=== PATIENT | male | born 1970 | race Caucasian/White ===

== ENCOUNTER 2017-08-18 02:50 | Emergency (ER) | payer OTHER ==
[~2017-08-18] VITALS: Ht 180.3 cm; Wt 105.9 kg
[2017-08-18 03:48] LABS: BASO # 0.1 10^3/uL (0.0-0.2); BASO % 0.6 % (0.0-1.0); EOS # 0.5 10^3/uL (0.0-0.50); EOS % 3.7 % (0.0-3.0); IMMATURE GRANULOCYTE % 0.2 % (0-0); LYMPH # 4.2 10^3/uL (1.5-4.5); MEAN CORPUSCULAR HEMOGLOBIN 31.9 pg (27.0-33.0); MEAN CORPUSCULAR HGB CONC 34.4 g/dl (32.0-36.5); MEAN CORPUSCULAR VOLUME 92.7 fl (80.0-96.0); MONO # 1.2 10^3/uL (0.0-0.8); MONO % 10.2 % (0.0-5.0); NEUTROPHILS % 50.3 % (36.0-66.0); PLATELET COUNT, AUTOMATED 279 10^3/uL (150-450); RED CELL DISTRIBUTION WIDTH 12.2 % (11.5-14.5)
[2017-08-18 04:09] LABS: ANION GAP 11 MEQ/L (8-16); BLOOD UREA NITROGEN 11 MG/DL (7-18); CALCIUM LEVEL 8.8 MG/DL (8.5-10.1); CARBON DIOXIDE LEVEL 25 MEQ/L (21-32); CHLORIDE LEVEL 108 MEQ/L (98-107); CREATININE FOR GFR 0.94 MG/DL (0.70-1.30); GLOMERULAR FILTRATION RATE > 60.0 (>60); GLUCOSE, FASTING 98 MG/DL (70-105); POTASSIUM SERUM 3.9 MEQ/L (3.5-5.1); SODIUM LEVEL 144 MEQ/L (136-145)
--- NOTE | 2017-08-18 04:10 | REPUSA ---
CLINICAL HISTORY: Syncope. TECHNIQUE: Multiple axial brain CT scan sections were obtained from base to vertex without contrast a dministration. COMMENTS: The study shows normal configuration of sella turcica. There are no intra or extra-axial collections. There is no mass effect or midline shift. There is no evidence of hematoma formation. No hydrocephal us is present. No abnormal calcifications are noted. No significant abnormalities are seen either in the posterior fossa or supratentorial compartment. The sinuses and mastoid air cells are patent. IMPRESSION: No evidence of acute intracranial pathology. Thank you for your kind referral of this patient.
[2017-08-18] MEDS ORDERED: NS 500 ML IV ONE (04:45)
[2017-08-18 05:27] VITALS: BP 126/61
--- NOTE | 2017-08-20 07:48 | ECGEPIP ---
Stationary ECG Study [facility] - ED Test Date: 2017-08-18 Pat Name: ZAIRA BULLARD Department: Room: - Gender: M Senior Mechanical Engineer: : 1970 Requested By: COREY CHAPMAN Order Number: [id number] Reading MD: Tram Madrid Measurements Intervals [place] Rate: 75 P: 14 MA: 134 QRS: 5 QRSD: 93 T: 29 QT: 390 QTc: 437 Interpretive Statements SINUS RHYTHM NONSPECIFIC T-WAVE ABNORMALITY NO PRIOR FOR COMPARISON Electronically Signed On 08-20-2017 7:48:17 EDT by Tram Madrid
== END 2017-08-18 05:40 | disposition home or self-care (01) ==
LOC: M ED 02:50 → EDBD 02:50 → M ED 05:40
DX: R55 Syncope and collapse (principal); Z87.891 Personal history of nicotine dependence
CPT/HCPCS: 70450; 80048; 85025; 93005; 96360; 99284; G0480

== ENCOUNTER 2017-10-12 12:15 | Day surgery (SDC) | payer OTHER ==
[~2017-10-12] VITALS: Ht 180.3 cm; Wt 106.1 kg
[~2017-10-12 12:15] MED LIST: OMEP20CA3 PO; SIMV20TA2 PO; VIAG100T PO
[2017-10-12] MEDS ORDERED: ASPI1TAB PO (13:44)
[2017-10-12] MEDS ORDERED: NS 1,000 ML IV ONE (14:00)
[2017-10-12] MEDS ORDERED: fentaNYL 100 MCG/2 ML INJECTION (J3010) As Ordered ONE (14:25)
[2017-10-12] MEDS ORDERED: LIDOCAINE 2% INJ 100 MG/5 ML SDV (FOR ANES.) As Ordered ONE (14:42)
[2017-10-12] MEDS ORDERED: PROPOFOL 200 MG/20 ML VIAL As Ordered ONE ×2 (14:42→14:43)
--- NOTE | 2017-10-12 15:19 | ROOR ---
Patient Name: Rafy Lafleur Procedure Date: 10/12/2017 2:20 PM Date of : 1970 Age: 47 Room: [facility] Gender: Male Note Status: Finalized Procedure: Colonoscopy Indications: Chronic diarrhea Providers: Luis Jay MD Referring MD: JOSIE JOHNSON MD Requesting Provider: Medicines: Monitored Anesthesia Care Complications: No immediate complications. Procedure: Pre-Anesthesia Assessment: - Prior to the procedure, a History and Physical was performed, and patient medications and allergies were reviewed. The patient is competent. The risks and benefits of the procedure and the sedation options and risks were discussed with the patient. All questions were answered and informed consent was obtained. Patient identification and proposed procedure were verified by the physician, the nurse and the anesthesiologist in the procedure room. Mental Status Examination: alert and oriented. Airway Examination: normal oropharyngeal airway and neck mobility. Respiratory Examination: clear to auscultation. CV Examination: normal. Prophylactic Antibiotics: The patient does not require prophylactic antibiotics. Prior Anticoagulants: The patient has taken no previous anticoagulant or antiplatelet agents. ASA Grade Assessment: III - A patient with severe systemic disease. After reviewing the risks and benefits, the patient was deemed in satisfactory condition to undergo the procedure. The anesthesia plan was to use monitored anesthesia care (MAC). Immediately prior to administration of medications, the patient was re-assessed for adequacy to receive sedatives. The heart rate, respiratory rate, oxygen saturations, blood pressure, adequacy of pulmonary ventilation, and response to care were monitored throughout the procedure. The physical status of the patient was re-assessed after the procedure. The Colonoscope was introduced through the anus and advanced to the terminal ileum, with identification of the appendiceal orifice and IC valve. The colonoscopy was performed without difficulty. The patient tolerated the procedure well. Findings: The perianal and digital rectal examinations were normal. The terminal ileum contained a few eight mm ulcers. No bleeding was present. Biopsies were taken with a cold forceps for histology. Verification of patient identification for the specimen was done by the physician and nurse using the patient's name, date and medical record number. Estimated blood loss was minimal. The colon (entire examined portion) appeared normal. Two biopsies were obtained with cold forceps for histology in the rectum. Impression: - A few ulcers in the terminal ileum. Biopsied. - The entire examined colon is normal. - Biopsies performed in the rectum. Recommendation: - Patient has a contact number available for emergencies. The signs and symptoms of potential delayed complications were discussed with the patient. Return to normal activities tomorrow. Written discharge instructions were provided to the patient. - Resume previous diet. - Continue present medications. Take pantoprazole 40 mg twice daily for next 2 months. - Await pathology results. - Repeat colonoscopy at age 52 for screening purposes. - Telephone GI clinic for pathology results on 10/18/2017 between 12: 00 to 1:00 PM. - Return to primary care physician. Luis Jay MD Luis Jay MD 10/12/2017 3:19:06 PM This report has been signed electronically. Number of Addenda: 0 Note Initiated On: 10/12/2017 2:20 PM Estimated Blood Loss: Estimated blood loss was minimal.
[2017-10-12 15:20] VITALS: BP 130/95
--- NOTE | 2017-10-12 16:01 | ROOR ---
Patient Name: Rafy Lafleur Procedure Date: 10/12/2017 2:19 PM Date of : 1970 Age: 47 Room: [facility] Gender: Male Note Status: Finalized Procedure: Upper GI endoscopy Indications: Abnormal UGI series Providers: Luis Jay MD Referring MD: JOSIE JOHNSON MD Requesting Provider: Medicines: Monitored Anesthesia Care Complications: No immediate complications. Procedure: Pre-Anesthesia Assessment: - Prior to the procedure, a History and Physical was performed, and patient medications and allergies were reviewed. The patient is competent. The risks and benefits of the procedure and the sedation options and risks were discussed with the patient. All questions were answered and informed consent was obtained. Patient identification and proposed procedure were verified by the physician, the nurse and the anesthesiologist in the procedure room. Mental Status Examination: alert and oriented. Airway Examination: normal oropharyngeal airway and neck mobility. Respiratory Examination: clear to auscultation. CV Examination: normal. Prophylactic Antibiotics: The patient does not require prophylactic antibiotics. Prior Anticoagulants: The patient has taken no previous anticoagulant or antiplatelet agents. ASA Grade Assessment: III - A patient with severe systemic disease. After reviewing the risks and benefits, the patient was deemed in satisfactory condition to undergo the procedure. The anesthesia plan was to use monitored anesthesia care (MAC). Immediately prior to administration of medications, the patient was re-assessed for adequacy to receive sedatives. The heart rate, respiratory rate, oxygen saturations, blood pressure, adequacy of pulmonary ventilation, and response to care were monitored throughout the procedure. The physical status of the patient was re-assessed after the procedure. The Endoscope was introduced through the mouth, and advanced to the second part of duodenum. The upper GI endoscopy was accomplished without difficulty. The patient tolerated the procedure well. Findings: The examined esophagus was normal. Multiple dispersed, 10 mm non-bleeding erosions were found in the gastric body and in the gastric antrum. There were no stigmata of recent bleeding. Biopsies were taken with a cold forceps for histology. Biopsies were taken with a cold forceps for Helicobacter pylori testing. A healed ulcer was found in the first portion of the duodenum. The scar tissue was healthy in appearance. The second portion of the duodenum was normal. Biopsies for histology were taken with a cold forceps for evaluation of celiac disease. Impression: - Normal esophagus. - Non-bleeding erosive gastropathy. Biopsied. - Duodenal scar. - Normal second portion of the duodenum. Biopsied. Recommendation: - Patient has a contact number available for emergencies. The signs and symptoms of potential delayed complications were discussed with the patient. Return to normal activities tomorrow. Written discharge instructions were provided to the patient. - Resume previous diet. - Continue present medications. - Use Protonix (pantoprazole) 40 mg PO twice daily - to be taken in morning (1/2 hour before breakfast) and at bedtime ( atleast 3 hours after last meal) for 2 months. - Await pathology results. - Telephone GI clinic for pathology results on 10/18/2016 between 12:00 to 1:00 PM.. - Return to primary care physician. Luis Jay MD Luis Jay MD 10/12/2017 4:00:53 PM This report has been signed electronically. Number of Addenda: 0 Note Initiated On: 10/12/2017 2:19 PM Estimated Blood Loss: Estimated blood loss was minimal.
== END 2017-10-12 15:30 | disposition home or self-care (01) ==
LOC: M OPP 12:15
PROVIDERS: ATTEND Internal Medicine Gastroenterology
DX: K52.9 Noninfective gastroenteritis and colitis, unspecified (principal); K63.3 Ulcer of intestine; R93.3 Abnormal findings on diagnostic imaging of other parts of digestive tract; K31.89 Other diseases of stomach and duodenum; I10 Essential (primary) hypertension; R00.9 Unspecified abnormalities of heart beat; Z79.82 Long term (current) use of aspirin; Z79.899 Other long term (current) drug therapy
CPT/HCPCS: 43239; 45380; 88305; J3010

== ENCOUNTER 2024-08-16 19:50 | Emergency (ER) | payer OTHER ==
[~2024-08-16] VITALS: Ht 177.8 cm; Wt 102.1 kg
[~2024-08-16 19:50] MED LIST changes: +ASPI81TA26 PO; +OMEP1CAP73 PO; -OMEP20CA3 PO; -SIMV20TA2 PO; +SIMV20TA22 PO
[2024-08-16 19:53] VITALS: BP 147/92; TEMP 97.2; O2SAT 97
[2024-08-16] MEDS ORDERED: IBUP80TA PO (20:14)
== END 2024-08-16 22:12 | disposition left against medical advice (07) ==
LOC: M ED 19:50
DX: Z53.21 Procedure and treatment not carried out due to patient leaving prior to being seen by health care provider (principal)